=== PATIENT | female | born 1985 | race Caucasian/White ===

== ENCOUNTER → 2018-09-19 13:35 | Outpatient (CLI) | payer OTHER, SELFPAY | PROVIDERS: Visit Provider Physician Assistant | DX: J02.9 Acute pharyngitis, unspecified (principal) | CPT/HCPCS: 87070 ==

== ENCOUNTER → 2025-02-07 12:04 | Outpatient (CLI) | payer OTHER, SELFPAY ==
--- NOTE | 2025-02-07 12:14 | DI.RAD.S_ITS ---
PROCEDURE: XR CERVICAL SPINE 2V OR 3V INDICATIONS: Neck pain, cervical radiculopathy TECHNIQUE: 3 view(s) of the cervical spine were acquired. COMPARISON: None. FINDINGS: Cervical spine curvature and alignment: Normal. Bones: There are no osseous abnormalities. Disc spaces: Normal in height without significant degeneration. Soft tissues: No soft tissue swelling, calcification or mass. IMPRESSION: Normal cervical spine. Dictated by: Kenneth Vasquez M.D. on 02/08/2025 at 11:35 Approved by: Kenneth Vasquez M.D. on 02/08/2025 at 11:35
--- NOTE | 2025-02-07 12:14 | DI.RAD.S_ITS ---
PROCEDURE: XR SHOULDER RT MIN 2V INDICATIONS: Right shoulder pain TECHNIQUE: Three views of the right shoulder were acquired. COMPARISON: None. FINDINGS: Bones: There are no osseous abnormalities. Acromioclavicular and glenohumeral joints: Normal in width and alignment without arthritic change Soft tissues: 1.3 cm curvilinear calcification is seen in the subacromial soft tissues IMPRESSION: 1.3 cm curvilinear calcification in the subacromial soft tissues. This could represent calcification in the rotator cuff or a loose body Dictated by: Kenneth Vasquez M.D. on 02/08/2025 at 11:33 Approved by: Kenneth Vasquez M.D. on 02/08/2025 at 11:34
== END ==
PROVIDERS: PCP Family Medicine; Referring Provider Family Medicine; Visit Provider Family Medicine
DX: M54.12 Radiculopathy, cervical region (principal); M54.2 Cervicalgia; M25.511 Pain in right shoulder; M25.811 Other specified joint disorders, right shoulder
CPT/HCPCS: 72040; 73030